=== PATIENT | male | born 1980 | race Hispanic/Latino ===

== ENCOUNTER 2021-04-25 18:46 | Emergency (ER) | payer SELFPAY ==
--- OUTSIDE RECORDS SUMMARY | 2021-04-25 18:49 | XMS REPORT | Continuity of Care Document ---
:1980 Author Organization [facility] t Address [address] [place] [address] Care Team Providers Name Role Phone TY LUKE M.D. Attending Clinician Unavailable Problems Condition Condition Condition Status Onset Resolution Last Treating Co mments Source Name Details Category Date Date Treatment Clinician Date Ankle Ankle Problem Active [facility] injury injury [facility] [place] [facility] History of History of Problem Resolve [facility] Hernia Hernia d [facility] [place] [facility] Sprain of Sprain of Problem Active Uni vers anterior anterior ity of [place]ofib[place] ligament r ligament Ph ysici of right of right ans ankle, ankle, initial initial encounter encounter Allergies, Adverse Reactions, Alerts This patient has no known allergies or adverse reactions. Family History Family Member Diagnosis Comments Start Date Stop Date Source Unknown Family Family history of Family History [facility] Member hypertension [place] [facility] Unknown Family Family history of Family History [facility] Member malignant neoplasm [place] [facility] Medications Ordered Filled Start Stop Current Ordering Indication Dosage Frequency Signature Comments Components Source Medication Medication Date Date Medication? Clinician (SIG) Name Name Acetaminoph Acetaminoph 2018-05 Yes TY 1 TAKE 1 Univers en-Codeine en-Codeine 1-05 LI-AGUSTO TABLET ity of 300-30 MG 300-30 MG 00:00: ZANA M.D. EVERY 6 [place] Oral Tablet Oral Tablet 00 HOURS Physici NEEDED FOR ans PAIN. Meloxicam Meloxicam 2018-05 Yes TY TAKE 1 Univers 7.5 MG Oral 7.5 MG Oral 0-31 LI-AGUSTO TABLET ity of Tablet Tablet 00:00: ZANA M.D. DAILY WITH [place] 00 FOOD. Physici Days: 30; ans Qty: 30 X Tablet; Refill: 3 COMPOUND COMPOUND Yes TAMMY MONTEMAYOR AIFLURBIPR Univers MEDICATION MEDICATION 7-30 M.D. OFEN ity of 00:00: 10%,AMANTA [place] 00 DINE Physici 10%,CYCLOB ans ENZAPRINE 2%,BACLOFE N 2%,GABAPEN TIN 6%,LIDOCAI NE 2%MO. TO AFF. AREA 1-2GM 3-4X DAILY LIN322OC Vimovo Vimovo 2015-0 Yes TAMMY MONTEMAYOR TAKE ONE Univers 500-20 MG 500-20 MG 7-30 M.D. TAB PO BID ity of Oral Tablet Oral Tablet 00:00: WITH FOOD [place] Delayed Delayed 00 Physici Release Release ans Procedures Procedure Date / Time Performed Performing Clinician Sourc e MR [place] wo contrast 2019-03-22 00:00:00 [facility] [place] [id number] Physicians Encounters Start End Encounter Admission Attending Care Care Encounter Source Date/Time Date/Time Type Type Clinicians Facility Department ID 2019-05-14 2019-05-14 Appointmen [facility] Orthopedics [id number] Univers 14:15:00 14:15:00 t; [facility] [place] [facility] M[facility] ans 2019-04-23 2019-04-23 Appointmen [facility] Orthopedics [id number] Univers 14:00:00 14:00:00 t; CANDIDO SPANN, - [facility] Sterling Parham M.D. ans 2019-03-22 2019-03-22 Appointmen [facility] Orthopedics [id number] Univers 13:30:00 13:30:00 t; [facility] ZANA[facility] [place] [facility] Ana Lilia CRAWFORD M.D. [facility] ans Results Test Description Test Test Results Result Source Time Comments Comments MR [place] wo 2019-03- PROCEDURE [facility] [id number] INFORMATION:Exam: MR Sung 15:39:00 Right Lower Extremity Phy sicians Without Contrast; AnkleExam date and time: 03/28/2019 3:44 PMClinical history: 39 years old, male; Unspecified injury of unspecified ankle,initial encounter; Additional info: S99.919a unspecified injury of unspecifiedankle, initial encounter/s99.919a unspecified injury of unspecified ankle,initial encounterTECHNIQUE:Imag ing protocol: MR of the Right ankle without contrast.COMPARISON:No relevant prior studies available.FINDINGS:LIGA MENTS:Anterior tibiofibular: Unremarkable. No tear.Posterior tibiofibular: Unremarkable. No tear.Anterior talofibular: High-grade tear, likely complete rupture of the anteriortalofibular ligament. Ossified bodies suggest this is a chronic process.Presence of soft tissue edema may suggest acute on chronic process.Posterior talofibular: Intact posterior talofibular ligament withintrasubstance signal. TheCalcaneofibular: The calcaneofibular ligament is thickened with intrasubstancesignal.De ltoid: Mild intrasubstance signal. There is also mild edema in the medialtalus at the deltoid insertion.TENDONS:Flexo rs: Unremarkable. No tear.Tibialis posterior: Unremarkable. No tear.Peroneal: Unremarkable. No tear.Extensors: Unremarkable. No tear.Tibialis anterior: Unremarkable. No tear.Achilles: Unremarkable. No tear.Bones/joints: Small tibiotalar joint effusion. No loose bodies.Cartilage: Unremarkable.Soft tissues: Unremarkable.Muscles: Unremarkable.Sinus tarsi: Unremarkable.Tarsal tunnel: Unremarkable.Plantar fascia: Unremarkable.IMPRESSION :1. 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 Presence ofadjacent soft tissue edema suggests acute on chronic process.2. Sprain of the calcaneofibular ligament.3. Sprain of the deep deltoid ligament complex with associated bone marrowedema in the talus. The symptomsChristopher Ross CABRALES On 03/29/2019 10:32:57; -[id number]--Iunq by: Arnulfo Hawkins MDDictated Date/time: 03/29/19 10:33Electronically Signed by: Arnulfo Hawkins 03/29/1910:33FINAL REPORT [U] XRAY FOOT 2019-02- Images acquired, not U niversity of MIN 3 VWS RIGHT 31 [place] [id number] 14:14:00 accession number. Physici ans
[2021-04-25] MEDS ORDERED: HYDROCODONE/APAP 5/325 MG TAB ONE (21:09)
--- NOTE | 2021-04-25 21:13 | RAD REPORT ---
EXAM DESCRIPTION: RAD - Hand Right 3 View - 04/25/2021 8:56 pm CLINICAL HISTORY: Right hand pain FINDINGS: No fracture or dislocation is seen. No bony destructive lesions seen
[2021-04-25] MEDS ORDERED: CLINDAMYCIN IV 150 MG/ML (4 mL) VIAL ONE (22:26)
--- NOTE | 2021-04-25 22:30 | EDPHYS ---
Physician Documentation [facility] Name: Dick Steward Age: 41 yrs Sex: Male : 1980 Arrival Date: 04/25/2021 Time: 18:52 Bed Treatment Private MD: ED Physician Tim Calle HPI: 04/25 20:22 This 41 yrs old Male presents to ER via Ambulatory with complaints of Hand mh7 Swelling. 20:22 The patient or guardian reports pain, swelling. The complaints affect the right hand. mh7 Context: The problem was sustained at an unknown location, resulted from an unknown cause. Onset: The symptoms/episode began/occurred today. Modifying factors: The symptoms are alleviated by nothing, the symptoms are aggravated by movement. Associated signs and symptoms: Pertinent negatives: cyanosis distally, decreased sensation distally, fever, nausea, numbness distally, tingling distally, vomiting. Severity of symptoms: At their worst the symptoms were moderate, earlier today, in the emergency department the symptoms have improved, moderately. Historical: - Allergies: 19:05 No Known Allergies; vg1 - Home Meds: 19:05 None [Active]; vg1 - PMHx: 19:05 None; vg1 - PSHx: 19:05 Hernia Repair; vg1 - Immunization history:: Client reports having NOT received the Covid vaccine. - Social history:: Smoking status: Patient denies any tobacco usage or history of. ROS: 20:22 Constitutional: Negative for fever, chills, and weight loss, Eyes: Negative for injury, mh7 pain, redness, and discharge, ENT: Negative for injury, pain, and discharge, Neck: Negative for injury, pain, and swelling, Cardiovascular: Negative for chest pain, palpitations, and edema, Respiratory: Negative for shortness of breath, cough, wheezing, and pleuritic chest pain, Abdomen/GI: Negative for abdominal pain, nausea, vomiting, diarrhea, and constipation, Back: Negative for injury and pain, : Negative for injury, bleeding, discharge, and swelling, Neuro: Negative for headache, weakness, numbness, tingling, and seizure, Psych: Negative for depression, anxiety, suicide ideation, homicidal ideation, and hallucinations, Allergy/Immunology: Negative for hives, rash, and allergies, Endocrine: Negative for neck swelling, polydipsia, polyuria, polyphagia, and marked weight changes, Hematologic/Lymphatic: Negative for swollen nodes, abnormal bleeding, and unusual bruising. Exam: 20:22 Constitutional: This is a well developed, well nourished patient who is awake, alert, mh7 and in no acute distress. Head/Face: Normocephalic, atraumatic. Neuro: Awake and alert, GCS 15, oriented to person, place, time, and situation. Cranial nerves II-XII grossly intact. Motor strength 5/5 in all extremities. Sensory grossly intact. Cerebellar exam normal. Normal gait. Psych: Awake, alert, with orientation to person, place and time. Behavior, mood, and affect are within normal limits. 22:25 Musculoskeletal/extremity: Extremities: noted in the Dorsal right hand: erythema, mh7 swelling, tenderness, ROM: intact in all extremities, Circulation is intact in all extremities. Sensation intact. Compartment Syndrome exam of affected extremity: is normal. no numbness, no tingling, no sensation deficit, no palor, no weak pulses, Joints: All joints appear normal with full range of motion. Weight bearing: able to fully bear weight, without difficulty, Tendon exam: specific tendon testing normal through active and passive range of motion 22:25 Skin: cellulitis, that is mild, well demarcated, on the Dorsal right hand, induration, is not appreciated, no rash present. Vital Signs: 19:03 BP 127 / 84; Pulse 87; Resp 16; Temp 98.3; Pulse Ox 98% ; Weight 74.84 kg; Height 5 ft. vg1 5 in. (165.10 cm); Pain 8/10; 19:03 Body Mass Index 27.46 (74.84 kg, 165.10 cm) vg1 MDM: 22:25 Differential diagnosis: closed fracture, contusion, abrasion, tendonitis, Cellulitis. mh7 Data reviewed: vital signs, nurses notes, radiologic studies, plain films. Data interpreted: Pulse oximetry: on room air is 98 %. Interpretation: normal. Counseling: I had a detailed discussion with the patient and/or guardian regarding: the historical points, exam findings, and any diagnostic results supporting the discharge/admit diagnosis, radiology results, the need for outpatient follow up, a hand specialist, to return to the emergency department if symptoms worsen or persist or if there are any questions or concerns that arise at home. Response to treatment: the patient's symptoms have markedly improved after treatment. 22:[address] [facility] 04/25 20:20 Order name: Hand Right 3 View XRAY; Complete Time: 21:20 [facility] Administered Medications: 21:17 Drug: [place] (HYDROcodone-acetaminophen) 5 mg-325 mg 1 tabs Route: PO; lp1 22:59 Follow up: Response: No adverse reaction lp1 22:50 Drug: Clindamycin 600 mg Route: IM; Site: right gluteus; lp1 22:58 Follow up: Response: Medication administered at discharge. lp1 Disposition Summary: 04/25/21 22:29 Discharge Ordered Location: Home [facility] Problem: new [facility] Symptoms: have improved [facility] Condition: Stable [facility] Diagnosis - Cellulitis of right upper limb - Hand [facility] Followup: [facility] - With: Private Physician - When: 1 - 2 days - Reason: Worsening of condition, Recheck today's complaints, Continuance of care, Re-evaluation by your physician Followup: [facility] - With: Donald Dawn MD - When: 1 - 2 days - Reason: Worsening of condition, Recheck today's complaints Followup: [facility] - With: Emergency Department - When: 1 - 2 days - Reason: Worsening of condition, Recheck today's complaints Discharge Instructions: - Discharge Summary Sheet [facility] - Cellulitis, Adult [facility] Forms: - Work release form lp1 - Medication Reconciliation Form [facility] - Thank You Letter [facility] - Antibiotic Education [facility] - Prescription Opioid Use [facility] Prescriptions: - Clindamycin HCl 300 mg Oral Capsule - take 1 capsule by ORAL route every 6 hours for 10 days; 40 capsule; Refills: 0, [facility] Product Selection Permitted - Ibuprofen 800 mg Oral Tablet - take 1 tablet by ORAL route every 8 hours As needed take with food; 15 tablet; [facility] Refills: 0, Product Selection Permitted - Tylenol-Codeine #3 300 mg-30 mg Oral - take 2 tablet by ORAL route every 6 hours As needed; 15 tablet; Refills: 0, [facility] Product Selection Permitted Signatures: Dispatcher [employer] Ivanna Beckman RN RN lp1 Jovana Viera RN RN vg1 Tim Calle MD MD [facility] Corrections: (The following items were deleted from the chart) 19:06 19:05 Allergies: No Known Allergies; vg1 vg1 19:05 Home Meds: None; vg1 vg1 : PMHx: None; vg1 vg1 19: PSHx: None; vg1 vg1 : PSHx: Hernia repair; vg1 vg1
--- NOTE | 2021-04-25 22:30 | ER ---
Nurse's Notes [facility] Name: Dick Steward Age: 41 yrs Sex: Male : 1980 Arrival Date: 04/25/2021 Time: 18:52 Bed Treatment Private MD: Diagnosis: Cellulitis of right upper limb-Hand Presentation: 04/25 19:03 Chief complaint: Patient states: This morning pt states woke up with Right hand pain vg1 and redness. Throughout the day noticed it began to swell. Denies any injury. Coronavirus screen: Vaccine status: Patient reports being unvaccinated. Client denies travel out of the [place] in the last 14 days. Ebola Screen: Patient negative for fever greater than or equal to 101.5 degrees Fahrenheit, and additional compatible Ebola Virus Disease symptoms. Initial Sepsis Screen: Does the patient meet any 2 criteria? No. Patient's initial sepsis screen is negative. Does the patient have a suspected source of infection? No. Patient's initial sepsis screen is negative. Risk Assessment: Do you want to hurt yourself or someone else? Patient reports no desire to harm self or others. Onset of symptoms was April 25, 2021. 19:03 Method Of Arrival: Ambulatory vg1 19:03 Acuity: BOBO 4 vg1 Triage Assessment: 19:05 General: Appears in no apparent distress. uncomfortable, Behavior is calm, cooperative. vg1 Pain: Complains of pain in right hand Pain currently is 8 out of 10 on a pain scale. 19:05 Musculoskeletal: Circulation, motion, and sensation intact. vg1 Historical: - Allergies: 19:05 No Known Allergies; vg1 - Home Meds: 19:05 None [Active]; vg1 - PMHx: 19:05 None; vg1 - PSHx: 19:05 Hernia Repair; vg1 - Immunization history:: Client reports having NOT received the Covid vaccine. - Social history:: Smoking status: Patient denies any tobacco usage or history of. Screenin:00 Abuse screen: Denies threats or abuse. Denies injuries from another. Nutritional lp1 screening: No deficits noted. Tuberculosis screening: No symptoms or risk factors identified. Fall Risk None identified. Assessment: 20:45 General: Appears in no apparent distress. Behavior is appropriate for age. Pain: lp1 Complains of pain in right hand Pain currently is 8 out of 10 on a pain scale. Neuro: Level of Consciousness is awake, alert, obeys commands, Oriented to person, place, time, situation. Cardiovascular: Patient's skin is warm and dry. Respiratory: Respiratory effort is even, unlabored. GI: No signs and/or symptoms were reported involving the gastrointestinal system. : No signs and/or symptoms were reported regarding the genitourinary system. EENT: No signs and/or symptoms were reported regarding the EENT system. Derm: swelling, redness to right dorsal hand. Vital Signs: 19:03 BP 127 / 84; Pulse 87; Resp 16; Temp 98.3; Pulse Ox 98% ; Weight 74.84 kg; Height 5 ft. vg1 5 in. (165.10 cm); Pain 8/10; 19:03 Body Mass Index 27.46 (74.84 kg, 165.10 cm) vg1 ED Course: 18:52 Patient arrived in ED. ds1 19:05 Triage completed. vg1 19:05 Arm band placed on. vg1 20:11 Tim Calle MD is Attending Physician. mh7 20:56 Hand Right 3 View XRAY In Process Unspecified. EDMS 21:00 Patient has correct armband on for positive identification. lp1 21:00 No provider procedures requiring assistance completed. Patient did not have IV access lp1 during this emergency room visit. 21:43 Ivanna Saavedra, MARY is Primary Nurse. lp1 22:28 Donald Dawn MD is Referral Physician. mh7 Administered Medications: 21:17 Drug: [place] (HYDROcodone-acetaminophen) 5 mg-325 mg 1 tabs Route: PO; lp1 22:59 Follow up: Response: No adverse reaction lp1 22:50 Drug: Clindamycin 600 mg Route: IM; Site: right gluteus; lp1 22:58 Follow up: Response: Medication administered at discharge. lp1 Outcome: 22:29 Discharge ordered by . mh7 22:55 Discharged to home ambulatory. lp1 22:55 Condition: good 22:55 Discharge instructions given to patient, Instructed on discharge instructions, follow up and referral plans. medication usage, Demonstrated understanding of instructions, follow-up care, medications, Prescriptions given X 3. 22:59 Patient left the ED. lp1 Signatures: Dispatcher [employer] Vanda Ahn ds1 Ivanna Saavedra RN RN lp1 Jovana Viera RN RN vg1 Tim Calle MD MD mh7 Corrections: (The following items were deleted from the chart) 19:05 Allergies: No Known Allergies; vg1 vg1 19:05 Home Meds: None; vg1 vg1 19:05 PMHx: None; vg1 vg1 19:05 PSHx: None; vg1 vg1 : 19:05 PSHx: Hernia repair; vg1 vg1
[2021-04-25 23:17] VITALS: BP 127/84; TEMP 98.3; O2SAT 98
== END 2021-04-25 22:59 | disposition home or self-care (01) ==
LOC: ER 18:46
DX: L03.113 Cellulitis of right upper limb (principal)
CPT/HCPCS: 96372; 99283; S0077